=== PATIENT | female | born 1975 | race Caucasian/White ===

== ENCOUNTER 2018-10-15 16:54 | Emergency (ER) | payer MEDICAID ==
[~2018-10-15] VITALS: Ht 149.9 cm; Wt 62.1 kg
[2018-10-15 17:06] VITALS: BP_SYST 123
--- NOTE | 2018-10-15 17:14 | NUR ---
Patient to ER bed 06 to gown for evaluation. Side rails up. .
--- NOTE | 2018-10-15 17:20 | NUR ---
Pt arrived to ED with complaints of diarrhea X 10 days. Pt has finished taking tamiflu and Z pack 7 days ago. Pt denies any N/V or cramping.
--- NOTE | 2018-10-15 17:30 | NUR ---
Note trixie in EDM - 10/15/18 at 1807 by [email or web address] Patient given written and verbal discharge instructions and verbalizes understanding. ER discussed with patient the results and treatment provided. Patient in stable condition. ID arm band removed. Rx of Lomotil given. Patient educated on pain management and to follow up with PMD. Pain Scale 0. Opportunity for questions provided and answered. Medication side effect fact sheet provided.
--- NOTE | 2018-10-15 17:30 | NUR ---
ER Dr. Navarro at bedside examining patient.
[2018-10-15] MEDS ORDERED: DIPHENOXYLATE HCL/ATROP SULF 2.5 MG TAB PO ONE (17:45)
--- NOTE | 2018-10-15 18:00 | NUR ---
Patient given written and verbal discharge instructions and verbalizes understanding. ER MD discussed with patient the results and treatment provided. Patient in stable condition. ID arm band removed. Rx of Lomotil given. Patient educated on pain management and to follow up with PMD. Pain Scale 0. Opportunity for questions provided and answered. Medication side effect fact sheet provided.
[2018-10-15 18:03] VITALS: BP_SYST 123
== END 2018-10-15 18:00 | disposition home or self-care (01) ==
LOC: SED 16:54
DX: R19.7 Diarrhea, unspecified (principal); R03.0 Elevated blood-pressure reading, without diagnosis of hypertension; Z88.1 Allergy status to other antibiotic agents
CPT/HCPCS: 99283